=== PATIENT | female | born 2000 | race Caucasian/White ===

== ENCOUNTER → 2019-02-01 | Outpatient (REF) | payer OTHER | LOC: M LAB REF 16:23 | PROVIDERS: ATTEND Physician Assistant | DX: J02.9 Acute pharyngitis, unspecified (principal) ==

== ENCOUNTER → 2019-05-24 | Outpatient (REF) | payer OTHER | LOC: M LAB REF 16:18 | PROVIDERS: ATTEND Nurse Practitioner Family | DX: J02.9 Acute pharyngitis, unspecified (principal) ==

== ENCOUNTER → 2019-08-11 | Outpatient (REF) | LOC: M LAB LCGH 13:59 | PROVIDERS: ATTEND Surgery | DX: K21.9 Gastro-esophageal reflux disease without esophagitis (principal) ==

== ENCOUNTER → 2020-04-10 | Outpatient (CLI) | payer BC, OTHER ==
--- NOTE | 2020-04-11 07:27 | REP ---
REASON: Early satiety. PRIORS: None. 1.04 mCi of technetium-99m sulfur colloid was cook-bound to two scrambled eggs and given to ingest orally with 6 ounces of water. The T1/2 calculation is 80 minutes with normal T1/2 values being up to 90 minutes. 59% of emptying was calculated at the 80-minute T1/2 time. IMPRESSION: The examination is within normal limits. Electronically Signed by Sincere Kwon DO 04/11/2020 09:29 A
== END ==
LOC: M RAD 12:22
PROVIDERS: ATTEND Internal Medicine Gastroenterology
DX: R68.81 Early satiety (principal); K21.9 Gastro-esophageal reflux disease without esophagitis
CPT/HCPCS: 78264; A9541

== ENCOUNTER 2021-02-07 22:46 | Emergency (ER) | payer BC, OTHER ==
[~2021-02-07] VITALS: Ht 165.1 cm; Wt 60.3 kg
[2021-02-07] MEDS ORDERED: LINZ290C PO (22:52)
[2021-02-08 02:46] LABS: HEMATOCRIT 41.6 % (36.0-47.0); HEMOGLOBIN 14.2 g/dl (12.0-15.5); MEAN CORPUSCULAR HEMOGLOBIN 31.2 pg (27.0-33.0); MEAN CORPUSCULAR HGB CONC 34.1 g/dl (32.0-36.5); MEAN CORPUSCULAR VOLUME 91.4 fl (80.0-96.0); PLATELET COUNT, AUTOMATED 218 10^3/uL (150-450); RED BLOOD COUNT 4.55 10^6/uL (4.00-5.40); WHITE BLOOD COUNT 9.2 10^3/uL (4.0-10.0)
[2021-02-08] MEDS ORDERED: ONDA4TAB6 PO (02:50)
[2021-02-08 02:55] LABS: ALBUMIN 4.4 GM/DL (3.2-5.2); ALT/SGPT 18 U/L (12-78); BILIRUBIN,TOTAL 0.4 MG/DL (0.2-1.0); BLOOD UREA NITROGEN 11 MG/DL (7-18); CALCIUM LEVEL 9.9 MG/DL (8.5-10.1); CARBON DIOXIDE LEVEL 30 MEQ/L (21-32); CHLORIDE LEVEL 105 MEQ/L (98-107); CREATININE FOR GFR 0.55 MG/DL (0.55-1.30); GLOMERULAR FILTRATION RATE > 60.0 (>60); GLUCOSE, FASTING 94 MG/DL (70-100); POTASSIUM SERUM 3.7 MEQ/L (3.5-5.1); SODIUM LEVEL 141 MEQ/L (136-145); TOTAL PROTEIN 7.6 GM/DL (6.4-8.2)
--- NOTE | 2021-02-08 04:18 | REPVR ---
PROCEDURE INFORMATION: Exam: US Pelvis Complete, Transabdominal and US Duplex Artery or Vein, Ovaries, Limited Exam date and time: 02/08/2021 2:51 AM Age: 20 years old Clinical indication: Pelvic pain; Additional info: Cramping/bleeding TECHNIQUE: Imaging protocol: Real-time transabdominal pelvic ultrasound with image documentation. Real-time duplex ultrasound scan of the arterial or venous flow of the ovaries with B-mode, color Doppler flow and spectral waveform analysis. Complete Pelvis, Limited Duplex. COMPARISON: No relevant prior studies available. FINDINGS: UTERUS: The uterus is anteverted, measuring 8.5 x 4.5 by 5.5 cm. Uterine echotexture and echogenicity are within normal limits. No evidence of a uterine fibroid is seen. The uterine cervix has an approximate length of 2.3 cm. No cervical fluid is seen. Cervical evaluation is suboptimal without endovaginal imaging. ENDOMETRIAL COMPLEX: The endometrial complex has a thickness of 12.8 mm. Endometrial echogenicity is mildly heterogeneous. No endometrial fluid is seen. No suspicious color Doppler flow is seen focally or diffusely within the endometrium, on limited color Doppler interrogation. On transverse imaging of the uterus, extending towards the fundus there appear to be 2 separate endometrial cavities. Outer contour of the uterus is difficult to characterize but not obviously indented. This may represent a septated uterus or an arcuate uterus, and less likely bicornuate. This could be better confirmed and further characterized by MRI as clinically appropriate. CUL DE SAC: No free fluid is seen within the pelvis. RIGHT OVARY/ADNEXA: The right ovary measures 3.4 x 3.5 x 2 cm. Multiple small follicles are noted. Color flow is seen from within the right ovary. Arterial spectral waveforms are noted from within the right ovary. Resistive index is 0.48, with good forward arterial diastolic flow the. LEFT OVARY/ADNEXA: The left ovary measures 3.3 x 2.3 x 2.3 cm. Multiple small follicles are noted. Color flow is seen from within the left ovary. Arterial spectral waveforms are noted from within the left ovary. Resistive index is 0.58, with good forward arterial diastolic flow. URINARY BLADDER: The urinary bladder measures 8.9 x 10.6 x 8.1 cm. No obvious bladder wall thickening is seen. No intrinsic debris is seen. Doppler jets are not evaluated. Postvoid residual was not evaluated on this exam. IMPRESSION: The uterus/endometrial complex may be septate or arcuate. Uterus and endometrium are within normal limits otherwise, by transabdominal evaluation. If the patient's abnormal bleeding should continue, consider more sensitive evaluation by endovaginal ultrasound, hydrohysterosonography or hysteroscopy for further evaluation of the endometrial lining. No free fluid is seen. Small ovarian follicles noted bilaterally. No evidence of ovarian torsion. Findings discussed above in detail. Electronically signed by: Luisito Bridges On 02/08/2021 04:17:39 AM
[2021-02-08 04:33] VITALS: BP 138/72
== END 2021-02-08 04:34 | disposition home or self-care (01) ==
LOC: M ED 22:46
DX: N93.8 Other specified abnormal uterine and vaginal bleeding (principal); K58.9 Irritable bowel syndrome, unspecified; Z79.899 Other long term (current) drug therapy